=== PATIENT | female | born 1980 | race Caucasian/White ===

== ENCOUNTER → 2016-09-26 | Outpatient (CLI) | payer OTHER ==
[~2016-09-26] MED LIST: ALBUAER2 INH; NORE-38 PO
== END | disposition home or self-care (01) ==
LOC: C.PAPS 07:45
PROVIDERS: ATTEND Obstetrics & Gynecology
DX: Z01.419 Encounter for gynecological examination (general) (routine) without abnormal findings (principal)

== ENCOUNTER 2017-09-13 16:23 | Emergency (ER) | payer OTHER ==
[~2017-09-13] VITALS: Ht 162.6 cm; Wt 71.5 kg
[2017-09-13 16:27] VITALS: TEMP 37.2; Ht 162.6 cm; Wt 71.5 kg
[2017-09-13] MEDS ORDERED: SODIUM CHLORIDE 0.9% 500ML 500 ML IV STA (16:50)
[2017-09-13] MEDS ORDERED: ONDANSETRON INJ 2 MG/ML 2 ML VIAL IV STA (16:50)
[2017-09-13 17:17] LABS: BASO % 0.3 %; BASO ABS # 0.03 K/uL (0-0.2); EOS ABS # 0.18 K/uL (0-0.5); HEMATOCRIT 45.2 % (37-47); IG# 0.02 K/uL (0.00-0.02); LYMPH % 5.7 %; LYMPH ABS # 0.51 K/uL (1.2-3.4); MEAN CELL VOLUME 88.5 fL (80-100); MEAN CORPUSCULAR HEMOGLOBIN 31.3 pg (25-34); MEAN CORPUSCULAR HGB CONC 35.4 g/dl (32-36); MEAN PLATELET VOLUME 10.7 fL (7.4-10.4); MONO % 10.6 %; MONO ABS # 0.94 K/uL (0.11-0.59); NEUT % 81.2 %; NEUT ABS # 7.19 K/uL (1.4-6.5); PLATELET COUNT 218 K/uL (130-400); RED CELL DISTRIBUTION WIDTH CV 12.6 % (11.5-14.5); RED CELL DISTRIBUTION WIDTH SD 40.8 fL (36.4-46.3); WHITE BLOOD COUNT 8.87 K/uL (4.8-10.8)
--- NOTE | 2017-09-13 17:32 | EMERGENCY ROOM VISIT NOTE ---
History First contact with patient: 16:35 Chief Complaint: NEURO SYMPTOMS Stated Complaint: VERY DIZZY, HEADACHE, VOMITING, VISION DISTURBANCE History of Present Illness The patient is a 36 year old female who presents to the Emergency Room with complaints of dizziness, headache, nausea and vomiting that started this morning at approximately 10:30 AM. She also feels very weak. She denies any focal weakness or slurred speech. She feels like her vision is blurry in her right eye. That has been constant. She has never experienced these symptoms before. She still Aleve with minimal relief of the headache. She denies any sick contacts. No history of migraines or vertigo. Patient contacted her primary care physician who advised her to come here for evaluation. The patient is also complaining of a fever. She did not take her temperature at home. She denies any cough or sore throat. No sinus pressure. No urinary symptoms. She denies any diarrhea. Last bowel movement was today and reportedly normal. Review of Systems 10 system review performed and negative unless noted in HPI or below Past Medical/Surgical History Medical Problems: (1) Anxiety (2) Appendectomy (3) Cholecystectomy (4) Endometriosis (5) GERD (gastroesophageal reflux disease) (6) Laparoscopy Social History Smoking Status: Former Smoker Drug Use: none Marital Status: Housing Status: lives with family Current/Historical Medications Scheduled Control Pills ( Control Pills), 1 TAB PO DAILY Ondasetron Odt (Zofran Odt), 4 MG SL Q6H Physical Exam Vital Signs Date Time Temp Pulse Resp B/P (MAP) Pulse Ox O2 Delivery O2 Flow Rate FiO2 09/13/17 19:50 100 120/84 97 09/13/17 18:14 116 20 136/78 98 Room Air 09/13/17 17:18 118 09/13/17 16:27 37.2 127 17 119/79 95 Room Air Physical Exam GENERAL: 36-year-old female, anxious in appearance,, in no acute distress, nondiaphoretic, well-developed well-nourished. SKIN: The skin was without rashes, erythema, edema, or bruising. HEAD: Normocephalic atraumatic. EARS: External auditory canals clear, tympanic membranes pearly brown without erythema or effusion bilaterally. EYES: Pupils equal round and reactive to light and accommodation. Conjunctivae without injection, sclerae without icterus. Extraocular movements intact. MOUTH: Mucous membranes moist. Tonsils are not enlarged. Pharynx without erythema or exudate. Uvula midline. Airway patent. Tongue does not deviate. NECK: Supple without nuchal rigidity. No lymphadenopathy. No JVD. HEART: Tachycardic, regular rhythm without murmurs gallops or rubs. LUNGS: Clear to auscultation bilaterally without wheezes, rales or rhonchi. No accessory muscle use. ABDOMEN: Positive bowel sounds x 4.Soft, nontender, without organomegaly. No guarding or rebound tenderness. MUSCULOSKELETAL: No muscle atrophy, erythema, or edema noted. . Normal gait. Strength 5/5 throughout. NEURO: Patient was alert and oriented to person place and time. Cerebellar function intact. Normal sensation to touch. No focal neurological deficits. Medical Decision & Procedures ER Provider Diagnostic Interpretation: CT chest IMPRESSION: 1. No evidence of pulmonary embolus. No acute intrathoracic pathology. 2. Solid fissural 8 mm nodule in the right lower lobe. This could represent unencapsulated lymphoid tissue. Follow-up per Gely Society [address] head Patient Name: EVER HOLMAN Unit Number: [id number] Dictated: 09/13/171745 Transcribed: 09/13/171745 PBS Printed Date/Time: [~ rep prt dt]/[~ rep prt tm] [~ rep ct labl] - [~ rep ct ivnm] [facility] [place] [address] Dictated: 09/13/171745 Transcribed: 09/13/171745 PBS Printed Date/Time: [~ rep prt dt]/[~ rep prt tm] [~ rep ct labl] - [~ rep ct ivnm] IMPRESSION: 1. No acute intracranial abnormality. Electronically signed by: Cliff Herrera M.D. 09/13/2017 5:47 PM Dictated Date/Time: 09/13/2017 5:46 PM The status of this report is Signed. Draft = Not yet reviewed or approved by Radiologist. Signed = Reviewed and approved by Radiologist. <AttendingPhy></AttendingPhy> <FamilyPhy>wJ Cr M.D.</FamilyPhy> < PrimaryPhy>Jw Cr M.D.</PrimaryPhy> <UnitNumber>[id number]</ UnitNumber> <VisitNumber>[id number]</VisitNumber> <PatientName>EVER HOLMAN</PatientName> <DateOfBirth>1980</DateOfBirth> <Location>[facility]</ Location> <ServiceDate>09/13/17</ServiceDate> <MNE>ESINDI</MNE> <OrderingPhy> Alycia Landry PA-C</OrderingPhy> <OrderingPhyMNE>f rep ord dr ojeda</ OrderingPhyMNE> <DictatingPhyMNE>f rep dict dr ojeda</DictatingPhyMNE> <CCListMNE> f rep ct mne</CCListMNE> <AdmittingPhyMNE>f pt admit dr ojeda</AdmittingPhyMNE> < AttendingPhyMNE>f pt attend dr ojeda</AttendingPhyMNE> <ConsultingPhyMNE>f pt consult dr ojeda</ConsultingPhyMNE> <FamilyPhyMNE>f pt fam dr ojeda</FamilyPhyMNE> <OtherPhyMNE>f pt other dr ojeda</OtherPhyMNE> < PrimaryPhyMNE>f pt prim care dr ojeda</PrimaryPhyMNE> <ReferringPhyMNE>f pt referring dr ojeda</ReferringPhyMNE> CXR Patient Name: EVER HOLMAN Unit Number: [id number] Dictated: 09/13/171746 Transcribed: 09/13/171746 PBS Printed Date/Time: [~ rep prt dt]/[~ rep prt tm] [~ rep ct labl] - [~ rep ct ivnm] [facility] [place] [address] Dictated: 09/13/171746 Transcribed: 09/13/171746 PBS Printed Date/Time: [~ rep prt dt]/[~ rep prt tm] [~ rep ct labl] - [~ rep ct ivnm] IMPRESSION: 1. No acute cardiopulmonary disease. Electronically signed by: Cliff Herrera M.D. 09/13/2017 5:48 PM Dictated Date/Time: 09/13/2017 5:47 PM The status of this report is Signed. Draft = Not yet reviewed or approved by Radiologist. Signed = Reviewed and approved by Radiologist. <AttendingPhy></AttendingPhy> <FamilyPhy>Jw Cr M.D.</FamilyPhy> < PrimaryPhy>Jw Cr M.D.</PrimaryPhy> <UnitNumber>[id number]</ UnitNumber> <VisitNumber>[id number]</VisitNumber> <PatientName>EVER HOLMAN</PatientName> <DateOfBirth>1980</DateOfBirth> <Location>[facility]</ Location> <ServiceDate>09/13/17</ServiceDate> <MNE>ESINDI</MNE> <OrderingPhy> Alycia Landry PA-C</OrderingPhy> <OrderingPhyMNE>f rep ord dr ojeda</ OrderingPhyMNE> <DictatingPhyMNE>f rep dict dr ojeda</DictatingPhyMNE> <CCListMNE> f rep ct mne</CCListMNE> <AdmittingPhyMNE>f pt admit dr ojeda</AdmittingPhyMNE> < AttendingPhyMNE>f pt attend dr ojeda</AttendingPhyMNE> <ConsultingPhyMNE>f pt consult dr ojeda</ConsultingPhyMNE> <FamilyPhyMNE>f pt fam dr ojeda</FamilyPhyMNE> <OtherPhyMNE>f pt other dr ojeda</OtherPhyMNE> < PrimaryPhyMNE>f pt prim care dr ojeda</PrimaryPhyMNE> <ReferringPhyMNE>f pt referring dr ojeda</ReferringPhyMNE> Laboratory Results 09/13/17 17:03 Red Blood Count 5.11, Mean Corpuscular Volume 88.5, Mean Corpuscular Hemoglobin 31.3, Mean Corpuscular Hemoglobin Concent 35.4, Mean Platelet Volume 10.7, Neutrophils (%) (Auto) 81.2, Lymphocytes (%) (Auto) 5.7, Monocytes (%) (Auto) 10.6, Eosinophils (%) (Auto) 2.0, Basophils (%) (Auto) 0.3, Neutrophils # (Auto ) 7.19, Lymphocytes # (Auto) 0.51, Monocytes # (Auto) 0.94, Eosinophils # (Auto ) 0.18, Basophils # (Auto) 0.03 09/13/17 17:03 Test 09/13/17 17:03 09/13/17 17:13 White Blood Count 8.87 K/uL (4.8-10.8) Red Blood Count 5.11 M/uL (4.2-5.4) Hemoglobin 16.0 g/dL (12.0-16.0) Hematocrit 45.2 % (37-47) Mean Corpuscular Volume 88.5 fL (80-100) Mean Corpuscular Hemoglobin 31.3 pg (25-34) Mean Corpuscular Hemoglobin Concent 35.4 g/dl (32-36) Platelet Count 218 K/uL (130-400) Mean Platelet Volume 10.7 fL (7.4-10.4) Neutrophils (%) (Auto) 81.2 % Lymphocytes (%) (Auto) 5.7 % Monocytes (%) (Auto) 10.6 % Eosinophils (%) (Auto) 2.0 % Basophils (%) (Auto) 0.3 % Neutrophils # (Auto) 7.19 K/uL (1.4-6.5) Lymphocytes # (Auto) 0.51 K/uL (1.2-3.4) Monocytes # (Auto) 0.94 K/uL (0.11-0.59) Eosinophils # (Auto) 0.18 K/uL (0-0.5) Basophils # (Auto) 0.03 K/uL (0-0.2) RDW Standard Deviation 40.8 fL (36.4-46.3) RDW Coefficient of Variation 12.6 % (11.5-14.5) Immature Granulocyte % (Auto) 0.2 % Immature Granulocyte # (Auto) 0.02 K/uL (0.00-0.02) D-Dimer 590 ug/L FEU (0-500) Anion Gap 9.0 mmol/L (3-11) Est Creatinine Clear Calc Drug Dose 83.8 ml/min Estimated GFR () 95.3 Estimated GFR (Non- 82.3 BUN/Creatinine Ratio 14.4 (10-20) Calcium Level 8.8 mg/dl (8.5-10.1) Total Bilirubin 0.2 mg/dl (0.2-1) Aspartate Amino Transf (AST/SGOT) 29 U/L (15-37) Alanine Aminotransferase (ALT/SGPT) 44 U/L (12-78) Alkaline Phosphatase 48 U/L (45-117) Troponin I < 0.015 ng/ml (0-0.045) Total Protein 6.9 gm/dl (6.4-8.2) Albumin 3.4 gm/dl (3.4-5.0) Globulin 3.5 gm/dl (2.5-4.0) Albumin/Globulin Ratio 1.0 (0.9-2) Lipase 126 U/L (73-393) Thyroid Stimulating Hormone (TSH) 0.809 uIu/ml (0.300-4.500) Chemistry Specimen Hemolysis Lyme Disease IgG Antibody NEG (NEG) Lyme Disease IgM Antibody NEG (NEG) Urine Color YELLOW Urine Appearance CLEAR (CLEAR) Urine pH 6.0 (4.5-7.5) Urine Specific [place] 1.017 (1.000-1.030) Urine Protein NEG (NEG) Urine Glucose (UA) NEG (NEG) Urine Ketones NEG (NEG) Urine Occult Blood NEG (NEG) Urine Nitrite NEG (NEG) Urine Bilirubin NEG (NEG) Urine Urobilinogen NEG (NEG) Urine Leukocyte Esterase NEG (NEG) Urine Test NEG (NEG) Medications Administered Medications (Trade) Dose Ordered Sig/Todd Route Start Time Stop Time Status Last Admin Dose Admin Ondansetron HCl (Zofran Inj) 4 mg NOW STAT IV 09/13/17 16:50 09/13/17 16:54 DC 09/13/17 17:06 4 MG Sodium Chloride 500 ml @ 999 mls/hr Q31M STAT IV 09/13/17 16:50 09/13/17 17:20 DC 09/13/17 16:50 999 MLS/HR Ibuprofen (Motrin Tab) 600 mg ONE STAT PO 09/13/17 18:27 09/13/17 18:28 DC 09/13/17 18:34 600 MG Ondansetron HCl (ZOFRAN ODT 4MG Home Pack) 1 homepack UD ONCE PO 09/13/17 19:45 09/13/17 19:46 DC 09/13/17 19:41 1 HOMEPACK ECG Indication: chest pain Rate (beats per minute): 118 Rhythm: sinus tachycardia Comparison ECG Date: no prior available ED Course Patient was seen and examined Vital signs including blood pressure were reviewed medications list was verified with patient Labs were obtained, and a saline lock was established The patient declined pain medication. She was given Zofran 4 mg IV for nausea. She was hydrated with 500 mL of normal saline. Upon reevaluation, the patient was still complaining of a headache. She was given motrin 600 mg po Imaging was performed and reviewed. Findings were discussed the patient, who is feeling much better. The case also discussed with my supervising physician, who is in agreement with my plan. I reviewed discharge instructions the patient. They voiced understanding and had no further questions. Medical Decision Differential diagnosis: Intracranial abnormality, vertigo, orthostatic hypotension, migraine, infectious etiology, cardiac arrhythmia, pulmonary embolus, pneumonia This patient is a 36-year-old female that presents to the emergency department with headache, dizziness, fever and vomiting. Her neurologic exam is intact. She is nontoxic in appearance. The patient has a history of anxiety/panic disorder, which I believe is exacerbating her symptoms. I ordered a CT of the chest, because the patient's d-dimer was elevated. This was negative for PE. She does have a pulmonary nodule. She was informed of this, and advised to follow-up with her primary care physician. It is possible that the patient was having an atypical migraine with a headache, dizziness and vomiting.The patient had good symptomatic relief with Zofran and ibuprofen in the emergency department. I believe she is stable to be discharged home. She was urged to have close follow-up with her primary care physician. She also was informed to return to the emergency department immediately with any new, worsening or concerning symptoms. She and her were happy with this plan of care, and the patient was discharged in good condition This chart was completed in part utilizing [employer] Voice Recognition software. Attempts were made to minimize the grammatical errors, random word insertions, pronoun errors and incomplete sentences. Any formal questions or concerns about the content, text or information contained within the body of this dictation should be directly addressed to the provider for clarification. Blood Pressure Screening Patient's blood pressure: Normal blood pressure Impression Primary Impression: Vomiting Additional Impression: Headache Departure Information Dispostion Home / Self-Care Condition GOOD Prescriptions Ondasetron Odt (ZOFRAN ODT) 4 Mg Tab 4 MG SL Q6H for Nausea, #20 TAB Prov: Alycia Landry PA-C 09/13/17 Referrals Jw Cr M.D. (PCP) Patient Instructions [facility] Additional Instructions You were evaluated in the emergency department for a headache, dizziness and vomiting. It is important to stay well-hydrated. Please increase your fluid intake over the next 48 hours. I would stick to a clear liquid diet such as broth and Gatorade tonight. If tolerating, you may advance to a bland diet tomorrow. Zofran every 6 hours as needed for nausea You have been examined and treated today on an emergency basis only. This is not a substitute for, or an effort to provide, complete comprehensive medical care. It is impossible to recognize and treat all injuries or illnesses in a single emergency department visit. It is therefore important that you follow up closely with [facility], your PCP, and/or your specialist(s). Call as soon as possible for an appointment. There also was a small nodule noted in your right lung. Please discuss this with your primary care physician. Please do not hesitate to return to the emergency department with any new, worsening or concerning symptoms Problem Qualifiers
[2017-09-13 17:38] LABS: ALBUMIN 3.4 gm/dl (3.4-5.0); ALT/SGPT 44 U/L (12-78); BLOOD UREA NITROGEN 13 mg/dl (7-18); CALCIUM 8.8 mg/dl (8.5-10.1); CARBON DIOXIDE 22 mmol/L (21-32); GLUCOSE 98 mg/dl (70-99); LIPASE 126 U/L (73-393); SODIUM 138 mmol/L (136-145)
[2017-09-13 17:48] LABS: ALKALINE PHOSPHATASE 48 U/L (45-117); AST/SGOT 29 U/L (15-37); TOTAL PROTEIN 6.9 gm/dl (6.4-8.2)
--- NOTE | 2017-09-13 17:49 | DIAGNOSTIC IMAGING REPORT ---
HEAD WITHOUT CONTRAST (CT) CLINICAL HISTORY: 36 years-old Female presenting with LEGGETT, dizzy. TECHNIQUE: Multidetector CT imaging of the head was performed without the use of intravenous contrast. IV contrast: None. A dose lowering technique was used consistent with the principles of ALARA (as low as reasonably achievable). COMPARISON: None. CT DOSE (mGy.cm): The estimated cumulative dose is 580.48 mGy.cm. FINDINGS: High Lift Mule Operator topogram: Unremarkable. Ventricles and sulci normal in size. Brain parenchyma normal in appearance with preserved brown-white differentiation. No mass effect or midline shift. No hemorrhage or acute territorial infarct. No extra-axial fluid collection. Paranasal sinuses and mastoid air cells clear. Calvarium intact. IMPRESSION: 1. No acute intracranial abnormality. Electronically signed by: Cliff Herrera M.D. 09/13/2017 5:47 PM Dictated Date/Time: 09/13/2017 5:46 PM
--- NOTE | 2017-09-13 17:50 | DIAGNOSTIC IMAGING REPORT ---
CHEST ONE VIEW PORTABLE CLINICAL HISTORY: 36 years-old Female presenting with chest pain fever. TECHNIQUE: Portable upright AP view of the chest was obtained. COMPARISON: 10/19/2015. FINDINGS: Cardiomediastinal silhouette normal. Lungs and pleural spaces clear. Osseous structures normal. Upper abdomen normal. IMPRESSION: 1. No acute cardiopulmonary disease. Electronically signed by: Cliff Herrera M.D. 09/13/2017 5:48 PM Dictated Date/Time: 09/13/2017 5:47 PM
[2017-09-13] MEDS ORDERED: IBUPROFEN 600 MG TAB PO STA (18:27)
[2017-09-13] MEDS ORDERED: OPTIRAY 320 IV PRN (18:30)
--- NOTE | 2017-09-13 19:01 | DIAGNOSTIC IMAGING REPORT ---
(CHEST FOR PE) ANGIO WITH CLINICAL HISTORY: 36 years-old Female presenting with ^chest pain SOB, anxiety. TECHNIQUE: Multidetector CT angiography of the chest was performed after administration of intravenous contrast. 3-D volumetric and/or maximum intensity projection (MIP) images were subsequently reconstructed for review. IV contrast: 75 mL of Optiray 320. A dose lowering technique was used consistent with the principles of ALARA (as low as reasonably achievable). COMPARISON: 08/26/2014. CT DOSE (mGy.cm): The estimated cumulative dose is 238.02 mGy.cm. FINDINGS: Container Filler topogram: Unremarkable. Pulmonary vasculature: The study is adequate for assessment of the pulmonary vascular tree. No filling defect within the pulmonary arteries to suggest embolus. Main pulmonary artery is not enlarged. No flattening of the interventricular septum. No intracardiac filling defect. No reflux of contrast into the hepatic veins. Remaining chest: On soft tissue windows, subcentimeter nodule in the right lobe of thyroid. Few small bilateral hilar lymph nodes, possibly reactive. Normal aorta. Normal heart size. No pericardial or pleural effusion. Upper abdomen normal. On lung windows, solid fissural 8 mm nodule in the right lower lobe (series 4 image 125). No other nodule or infiltrate. Central airways patent. On bone windows, normal osseous structures. IMPRESSION: 1. No evidence of pulmonary embolus. No acute intrathoracic pathology. 2. Solid fissural 8 mm nodule in the right lower lobe. This could represent unencapsulated lymphoid tissue. Follow-up per Gely Society 2017 recommendations below. Please refer to below summary of Fleischner Society 2017 recommendations for follow-up of incidental CT nodules (H Stephanie et al. Guidelines for management of incidental pulmonary nodules detected on CT images: From the Fleischner Society 2017. Radiology 2017; 284: 228-243.) SOLID NODULES Single nodule; size < 6 mm * Low risk patients: No routine follow-up * High risk patients: Optional CT at 12 months Single nodule; size 6-8 mm * Low risk patients: CT at 6-12 months, then consider CT at 18-24 months * High risk patients: CT at 6-12 months, then at 18-24 months Single nodule; size > 8 mm * Either low or high risk patients: Considered CT at 3 months, PET/CT, or tissue sampling Multiple nodules; size < 6 mm * Low risk patients: No routine follow up * High risk patients: Optional CT at 12 months Multiple nodules; size 6-8 mm * Low risk patients: CT at 3-6 months, then consider CT at 18-24 months * High risk patients: CT at 3-6 months, then at 18-24 months Multiple nodules; size > 8 mm * Low risk patients: CT at 3-6 months, then consider at 18-24 months * High risk patients: CT at 3-6 months, then at 18-24 months Note: These guidelines apply to incidental nodules. These guidelines do not apply to patients younger than 35 years, immunocompromised patients, or patients with cancer. * Low risk patients: Minimal or absent history of smoking and/or other known risk factors * High risk patients: History of smoking, exposure to other carcinogens, emphysema, fibrosis, upper lobe location, family history of lung cancer, etc. * If a nodule up to 8 mm is partly solid or is ground glass, further follow-up is required after 24 months to exclude possible slow growing adenocarcinoma. SUBSOLID NODULES Single ground-glass nodule * Nodule size < 6 mm: No routine follow-up * Nodule size > or = 6 mm: CT at 6-12 months to confirm persistence, then CT every 2 years until 5 years Single part-solid nodule * Nodule size < 6 mm: No routine follow-up * Nodules size > or = 6 mm: CT at 3-6 months to confirm persistence. If unchanged and solid component remains < 6 mm, annual CT should be performed for 5 years Multiple nodules * Nodule size < 6 mm: CT at 3-6 months. If stable, consider CT at 2 and 4 years. * Nodules size > or = 6 mm: CT at 3-6 months. Subsequent management based on the most suspicious nodule(s) Electronically signed by: Cliff Herrera M.D. 09/13/2017 7:00 PM Dictated Date/Time: 09/13/2017 6:57 PM
[2017-09-13] MEDS ORDERED: ONDA4TAB10 SL (19:30)
[2017-09-13] MEDS ORDERED: ONDANSETRON HOME PACK 4MG OD TAB PO ONE (19:45)
[2017-09-13 19:50] VITALS: BP 120/84; PULSE 100; O2SAT 97
[2017-09-16] MEDS ORDERED: BCPILLS PO (16:51)
== END 2017-09-13 19:54 | disposition home or self-care (01) ==
LOC: C.EDB 16:25 → C.EDA 19:54
DX: R11.10 Vomiting, unspecified (principal); R51 Headache; F41.9 Anxiety disorder, unspecified; K21.9 Gastro-esophageal reflux disease without esophagitis; Z87.891 Personal history of nicotine dependence

== ENCOUNTER 2017-09-16 17:15 | Emergency (ER) | payer OTHER ==
[~2017-09-16] VITALS: Ht 162.6 cm; Wt 71.5 kg
[~2017-09-16 17:15] MED LIST changes: -ALBUAER2 INH; +BCPILLS PO; -NORE-38 PO; +ONDA4TAB10 SL
[2017-09-16 17:44] VITALS: TEMP 37.8; Ht 162.6 cm; Wt 71.5 kg
[2017-09-16] MEDS ORDERED: ACETAMINOPHEN 500 MG TAB PO STA (18:04)
--- NOTE | 2017-09-16 18:19 | EMERGENCY ROOM VISIT NOTE ---
History First contact with patient: 17:56 Chief Complaint: FLU LIKE SX Stated Complaint: CHECK RT LEG FOR BLOOD CLOT- PHYSICIAN REFERRED History of Present Illness The patient is a 36 year old female who presents to the Emergency Room via private vehicle accompanied by male with complaints of "check right leg for blood clot-physician referred". The patient states that since this past weekend she has been battling upper respiratory tract infection. She also had right calf pain for many months. She states that she was evaluated this past weekend and was referred here for potential blood clot in the lungs. CT scan was obtained the chest and there was no blood clot. The right calf was not evaluated. The upper respiratory symptoms persisted and she was evaluated today at a walk-in clinic. She was referred here over concern for right leg DVT. The patient states that she since this past weekend has had cough, congestion, as well as fever. Review of Systems A complete 10-point Review of Systems was discussed with the patient, with pertinent positives and negatives listed in the History of Present Illness. All remaining Review of Systems questions can be considered negative unless otherwise specified. Past Medical/Surgical History Medical Problems: (1) Anxiety (2) Appendectomy (3) Cholecystectomy (4) Endometriosis (5) GERD (gastroesophageal reflux disease) (6) Laparoscopy Social History Smoking Status: Never Smoker Drug Use: none Marital Status: Housing Status: lives with family Current/Historical Medications Scheduled Albuterol Hfa (Ventolin Hfa), 1-2 PUFFS INH Q6H Azithromycin (Zithromax), 1 PKT PO UD Control Pills ( Control Pills), 1 TAB PO DAILY Ondasetron Odt (Zofran Odt), 4 MG SL Q6H Prednisone (Prednisone Tab), 2 TAB PO DAILY Physical Exam Vital Signs Date Time Temp Pulse Resp B/P (MAP) Pulse Ox O2 Delivery O2 Flow Rate FiO2 09/16/17 19:00 72 16 124/72 98 09/16/17 17:44 37.8 115 20 141/82 99 Room Air Physical Exam VITAL SIGNS - Vital signs and nursing notes were reviewed. Stable. Febrile and slightly tachycardic. GENERAL - 36-year-old female appearing her stated age who is in no acute distress. Communicates well with provider and answers questions appropriately. SKIN - Without rashes. HEAD - NC/AT. EYES - Sclera anicteric. EARS - No deformities of external structures noted on gross examination bilaterally. No pain elicited with palpation of the tragus bilaterally. External auditory canals without discharge or otorrhea. Tympanic membranes pearly brown without retraction or bulging. No fluid or purulent material visualized behind the TM. Handle of malleus, umbo, cone of light, pars tensa/ flaccid all easily visualized. NOSE - Midline and without cyanosis. No epistaxis or purulent drainage noted. MOUTH/OROPHARYNX - Without perioral cyanosis. NECK - Neck with FROM. Supple to palpation. No nuchal rigidity. LUNGS - Chest wall symmetric without accessory muscle use, intercostals retractions, or central cyanosis. Normal vesicular breath sounds CTA B/L. No wheezes, rales, or rhonchi appreciated. CARDIAC - RRR with S1/S2. No murmur, rubs, or gallops appreciated. EXTREMITIES - No clubbing or peripheral cyanosis. No pretibial edema present. R calf tenderness. NEUROLOGIC - Cranial nerves II through XII grossly intact. Sensory intact to light touch throughout. PSYCH - A&O, and cooperates fully with examiner. Pt is very pleasant and interacts well with examiner. Medical Decision & Procedures ER Provider Diagnostic Interpretation: R VENOUS DOPP LOWER EXT UNILAT CLINICAL HISTORY: R calf pain pain. Edema. TECHNIQUE: His Doppler COMPARISON STUDY: None FINDINGS: Normal study IMPRESSION: Normal study The above report was generated using voice recognition software. It may contain grammatical, syntax or spelling errors. Electronically signed by: Gualberto Quintanilla M.D. 09/16/2017 6:45 PM Dictated Date/Time: 09/16/2017 6:44 PM Medications Administered Medications (Trade) Dose Ordered Sig/Todd Route Start Time Stop Time Status Last Admin Dose Admin Acetaminophen (Tylenol Tab) 500 mg NOW STAT PO 09/16/17 18:04 09/16/17 18:05 DC 09/16/17 18:04 500 MG Medical Decision Patient was seen and evaluated as above. After obtaining a thorough history and physical examination it was evident the patient was referred here for evaluation of DVT in the right leg as well as for her upper respiratory tract infection she's had for the past few days. Review was had her previous visit, CT was obtained and there was no PE. Decision was made to obtain an ultrasound of her right leg today. No DVT. I suspect likely has a viral URI. Because of her presentation today I will elect to provide a Ventolin inhaler, prednisone taper as well as a Z-Tej that she is tachycardic and borderline febrile. She is to fluid hydrating home. She is not felt to be septic. She is to follow with her family doctor. She was educated upon management, educated upon worrisome symptoms which to return, had a discharge, and was discharged home in good condition. In evaluation treatment this patient the following differential diagnoses were entertained: Influenza, pneumonia, viral URI, DVT, among others. Impression Primary Impression: Upper respiratory infection Additional Impression: Right leg pain Departure Information Dispostion Home / Self-Care Condition GOOD Prescriptions Prednisone (Prednisone Tab) 20 Mg Tab 2 TAB PO DAILY for 5 Days, #10 TAB Prov: Jose Garza PA-C 09/16/17 Azithromycin (ZITHROMAX) 250 Mg Tab 1 PKT PO UD for 5 Days, #6 TAB Prov: Jose Garza PA-C 09/16/17 Albuterol Hfa (VENTOLIN HFA) 200 Puffs/93339 Mcg Aers 1-2 PUFFS INH Q6H, #1 INHALER Prov: Jose Garza PA-C 09/16/17 Referrals Jw Cr M.D. (PCP) Patient Instructions My [facility] Additional Instructions You were seen in the emergency department for your upper respiratory tract infection and right leg pain. Ultrasound reveals no DVT. The azithromycin is 500 mg on day one followed by 250 mg on days 2 through 5. Prednisone as prescribed. Albuterol inhaler 1-2 puffs every 6 hours. Please use the spacer. I recommend following up with the family doctor. Please return with any new/concerning symptoms. Problem Qualifiers
--- NOTE | 2017-09-16 18:47 | DIAGNOSTIC IMAGING REPORT ---
R VENOUS DOPP LOWER EXT UNILAT CLINICAL HISTORY: R calf pain pain. Edema. TECHNIQUE: His Doppler COMPARISON STUDY: None FINDINGS: Normal study IMPRESSION: Normal study The above report was generated using voice recognition software. It may contain grammatical, syntax or spelling errors. Electronically signed by: Gualberto Quintanilla M.D. 09/16/2017 6:45 PM Dictated Date/Time: 09/16/2017 6:44 PM
[2017-09-16] MEDS ORDERED: VNTHFA/IN INH (18:51)
[2017-09-16] MEDS ORDERED: PRED20TA2 PO (18:51)
[2017-09-16] MEDS ORDERED: AZIT-60 PO (18:51)
[2017-09-16 19:00] VITALS: BP 124/72; PULSE 72; O2SAT 98
== END 2017-09-16 19:00 | disposition home or self-care (01) ==
LOC: C.EDB 17:17 → C.EDD 19:00
DX: J06.9 Acute upper respiratory infection, unspecified (principal); M79.661 Pain in right lower leg; F41.9 Anxiety disorder, unspecified; N80.9 Endometriosis, unspecified; K21.9 Gastro-esophageal reflux disease without esophagitis; Z79.3 Long term (current) use of hormonal contraceptives; R00.0 Tachycardia, unspecified